=== PATIENT | male | born 2000 | race Caucasian/White ===

== ENCOUNTER 2020-03-29 19:28 | Emergency (ER) | payer OTHER ==
[2020-03-29] MEDS ORDERED: NAPROXEN500 MG PO (20:05)
== END 2020-03-29 20:29 | disposition home or self-care (01) ==
LOC: FER 19:28
DX: S93.602A Unspecified sprain of left foot, initial encounter (principal); W18.09XA Striking against other object with subsequent fall, initial encounter; Y92.89 Other specified places as the place of occurrence of the external cause; Y99.0 Civilian activity done for income or pay
CPT/HCPCS: 73630

== ENCOUNTER 2020-08-21 20:30 | Emergency (ER) | payer OTHER ==
[~2020-08-21 20:30] MED LIST: NAPROXEN500 MG PO
[2020-08-21 21:41] LABS: BASOPHIL 0.5 % (0-2); HCT 44.8 % (42.0-52.0); HGB 15.9 g/dl (13.2-18.0); LYMPHOCYTE 15.6 % (15-48); MCH 30.4 pg (25.0-31.0); MCHC 35.5 g/dL (32.0-36.0); MCV 85.7 fL (78.0-100.0); MPV 9.9 fL (6.0-9.5); NEUTROPHIL 73.6 % (41-80); NRBC 0; PLT 233 K/uL (150-400); RBC 5.23 M/uL (4.70-6.00); RDW 11.4 % (11.5-14.0)
[2020-08-21 21:52] LABS: MONOSPOT (MONONUCLEOSIS) NEGATIVE (NEGATIVE)
[2020-08-21 21:57] LABS: BILIRUBIN - TOTAL 0.4 mg/dL (0.2-1.0); BUN/CREAT RATIO (CALC) 22.2 RATIO; CREATININE 0.72 mg/dL (0.67-1.17); GLOBULIN (CALCULATION) 3.6 g/dL; POTASSIUM 3.7 mmol/L (3.5-5.1); TOTAL PROTEIN 7.6 g/dL (6.4-8.2)
[2020-08-21 22:02] LABS: LACTIC ACID 1.7 mmol/L (0.4-1.9)
[2020-08-21 22:15] LABS: CORONAVIRUS 2019 SARS-COV-2 NEGATIVE (NEGATIVE); INFLUENZA A NAA NEGATIVE (NEGATIVE)
[2020-08-21 22:32] LABS: BILIRUBIN NEGATIVE (NEGATIVE); BLOOD NEGATIVE Ery/uL (NEGATIVE); CLARITY CLEAR (CLEAR); COLOR YELLOW (YELLOW); GLUCOSE (U) NORMAL (NORMAL); LEUKOCYTES NEGATIVE Leu/uL (NEGATIVE); NITRITE NEGATIVE (NEGATIVE); PROTEIN NEGATIVE (NEGATIVE); SPECIFIC GRAVITY >=1.030 (1.001-1.030); UROBILINOGEN 0.2 mg/dL (0.2-1.0); pH 5.5 (5.0-9.0)
[2020-08-22] MEDS ORDERED: ONDANSETRON ODT4 MG SL (02:53)
[2020-08-22] MEDS ORDERED: BENTYL10 MG PO (02:53)
[2020-08-22] MEDS ORDERED: IBUPROFEN800 MG PO (02:53)
[2020-08-22] MEDS ORDERED: MEDROL 4MG DOSEP4 MG PO (02:53)
== END 2020-08-22 03:02 | disposition home or self-care (01) ==
LOC: FER 20:30
PROVIDERS: Emergency Medicine Emergency Medical Services
DX: J02.0 Streptococcal pharyngitis (principal); R11.2 Nausea with vomiting, unspecified; R19.7 Diarrhea, unspecified; R10.84 Generalized abdominal pain; J45.909 Unspecified asthma, uncomplicated; Z88.8 Allergy status to other drugs, medicaments and biological substances; Z91.030 Bee allergy status; Z20.822 Contact with and (suspected) exposure to COVID-19
CPT/HCPCS: 36415; 71045; 71275; 80053; 81003; 83605; 83690; 85025; 85379; 86308; 87880; 93005; 96372; J0561; J1100; J1885; J2405; J7120; Q9967; U0002